=== PATIENT | male | born 1945 | race Hispanic/Latino ===

== ENCOUNTER → 2018-02-16 | Outpatient (CLI) | payer MEDICARE ==
--- NOTE | 2018-02-16 09:54 | NUR ---
MODIFIED BARIUM SWALLOW STUDY COMPLETED. -S/S OF ASPIRATION OBSERVED. RECOMMEND DYSPHAGIA CHOPPED TEXTURE AND THIN LIQUIDS. PATIENT INFORMATION: PATIENT IS A 72 YEAR OLD MALE REFERRED FOR AN MODIFIED BARIUM SWALLOW STUDY BY DR. MARTINE BORREGO SECONDARY TO A DIAGNOSIS OF DYSPHAGIA. PATIENT AND SPOUSE SERVED PRIMARY INFORMANTS FOR MEDICAL HISTORY. 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 PER PATIENT, HE EXPERIENCES COUGHING AND CHOKING EPISODES DURING MEALS. ONSET OF SWALLOWING DIFFICULTY WAS APPROXIMATELY 4 WEEKS AGO. EVALUATION: PATIENT PRESENTS WITH MILD OROPHARYNGEAL DYSPHAGIA CHARACTERIZED BY DELAYED PHARYNGEAL RESPONSE TIME AND POOR ORAL CONTROL EVIDENCED BY PREMATURE SPILLAGE INTO THE VALLECULAE AND RESIDUE IN THE PYRIFORM SINUSES REQUIRING MULTIPLE SWALLOWS. RESIDUE IN VALLECULAE AND PYRIFORM SINUS ELIMINATED WITH MULTIPLE SWALLOW. PATIENT WITH DECREASED ORAL CONTROL AND PROLONGED MASTICATION TIME SECONDARY TO RIGHT SIDED PARESIS. NO ASPIRATION/PENETRATION OBSERVED DURING EVALUATION. PATIENT WITH ADEQUATE LARYNGEAL ELEVATION/EXCURSION AND GOOD AIRWAY PROTECTION. RECOMMENDATIONS: 1. DYSPHAGIA CHOPPED DIET 2. THIN LIQUIDS 3. ADHERENCE TO SAFE SWALLOW TECHNIQUES *ALTERNATING SIPS/BITES *SMALL SIPS/BITES *PACING-NO GULPING EDUCATION: DIAGNOSTIC IMPRESSIONS AND RECOMMENDATIONS WERE REVIEWED WITH PATIENT AND SPOUSE. OIL BURNER SERVICER AND INSTALLER EDUCATED PATIENT AND SPOUSE ON STRICT ADHERENCE TO SAFE SWALLOW TECHNIQUES TO PROTECT AIRWAY AND DECREASE RISK OF ASPIRATION. RISKS OF ASPIRATION REVIEWED WITH PATIENT. PATIENT AND SPOUSE VERBALLY AGREED WITH RECOMMENDATIONS. G-CODES: [id number] Addendum: 02/16/[address] [facility] JAVED Amended: Links added.
== END | disposition home or self-care (01) ==
LOC: RAH 08:17
PROVIDERS: ATTEND Family Medicine
DX: K21.9 Gastro-esophageal reflux disease without esophagitis (principal); R47.02 Dysphasia
CPT/HCPCS: G8996; G8997; G8998; 74230; 92611